=== PATIENT | male | born 1970 | race African-American/Black ===

== ENCOUNTER 2022-02-03 15:09 | Emergency (ER) | payer BC ==
[~2022-02-03] VITALS: Ht 175.3 cm; Wt 140.6 kg
[2022-02-03] MEDS ORDERED: COZAAR100 MG PO (15:36)
[2022-02-03] MEDS ORDERED: HYDRODIURIL12.5 MG PO (15:36)
[2022-02-03] MEDS ORDERED: AMLODIPINE-OLM1 EAC2 PO (15:37)
[2022-02-03] MEDS ORDERED: VOLTAREN ARTHRI20 GM TOP (19:16)
== END 2022-02-03 19:35 | disposition home or self-care (01) ==
LOC: ER 15:09
DX: M79.672 Pain in left foot (principal); I10 Essential (primary) hypertension